=== PATIENT | female | born 1960 | race Caucasian/White ===

== ENCOUNTER 2017-10-07 09:08 | Inpatient (IN) | payer OTHER ==
[2017-10-07] MEDS ORDERED: GLUCAGON 1 MG INJ IM (11:00)
[2017-10-07] MEDS ORDERED: GLUCOSE GEL 15 GRAM TUBE BUCCAL (11:00)
[2017-10-07] MEDS ORDERED: DEXTROSE 50% 50 ML SYRINGE IV ×2 (11:00)
[2017-10-07] MEDS ORDERED: GLUCOSE GEL 15 GRAM TUBE PO ×2 (11:00)
[2017-10-07] MEDS: INSULIN ASPART [NOVOLOG] 3 ML PEN SC ×3 (11:10→20:45)
[2017-10-07 11:31] LABS: ADD MAN DIFF? NO
[2017-10-07 11:36] LABS: BASOPHIL # 0.1 10^3/ul (0.0-0.1); BASOPHILS % 1.4 % (0.0-2.0); EOSINOPHILS % 0.4 % (0.0-7.0); HEMATOCRIT 41.9 % (37.0-47.0); HEMOGLOBIN 14.3 g/dl (12.0-16.0); LYMPHOCYTES # 1.3 10^3/ul (0.8-2.9); LYMPHOCYTES % 22.8 % (15.0-51.0); MEAN CORPUSCULAR HEMOGLOBIN 30.3 pg (29.0-33.0); MEAN CORPUSCULAR HGB CONC 34.1 g/dl (32.0-37.0); MEAN CORPUSCULAR VOLUME 88.8 fl (82.0-101.0); MEAN PLATELET VOLUME 11.7 fl (7.4-10.4); MONOCYTES % 17.8 % (0.0-11.0); NEUTROPHIL # 3.2 10^3/ul (1.6-7.5); NEUTROPHILS % 57.2 % (39.0-77.0); PLATELET COUNT 294 10^3/UL (140-415); RED BLOOD COUNT 4.72 10^6/ul (4.20-5.40); RED CELL DISTRIBUTION WIDTH 13.2 % (11.5-14.5)
[2017-10-07 11:36] LABS: WHITE BLOOD COUNT 5.7 10^3/ul (4.8-10.8)
[2017-10-07 11:38] LABS: ALANINE AMINOTRANSFERASE 29 IU/L (13-69); ALBUMIN/GLOBULIN RATIO 1.17; ALKALINE PHOSPHATASE 117 IU/L (42-121); ANION GAP 15 (8-16); ASPARTATE AMINO TRANSFERASE 30 IU/L (15-46); BILIRUBIN,INDIRECT 0.1 mg/dl (0-1.1); BILIRUBIN,TOTAL 0.1 mg/dl (0.2-1.3); CARBON DIOXIDE 25 mmol/L (21-31); CHLORIDE 104 mmol/L (97-110); GLUCOSE 282 mg/dl (70-220); TOTAL PROTEIN 7.4 g/dl (6.1-8.1)
[2017-10-07 11:41] LABS: BLOOD UREA NITROGEN 11 mg/dl (7-20); CALCIUM 9.1 mg/dl (8.4-10.2); SODIUM 140 mmol/L (135-144)
[2017-10-07 11:55] LABS: INR 0.91; PROTIME 12.3 Sec (11.9-14.9)
[2017-10-07] MEDS ORDERED: INSULIN ASPART [NOVOLOG] 3 ML PEN SC ×2 (12:00→13:00)
[2017-10-07 12:24] LABS: PARTIAL THROMBOPLASTIN TIME 26.2 Sec (25.0-35.0)
[2017-10-07] MEDS ORDERED: FENTAnyl 50 MCG/ML VIAL (13:41)
[2017-10-07] MEDS ORDERED: CEFAZOLIN 1 GM INJ (13:41)
[2017-10-07] MEDS ORDERED: MIDAZOLAM 1 MG/ML 2 ML INJ (13:41)
[2017-10-07] MEDS ORDERED: PROPOFOL 20 ML (13:41)
[2017-10-07] MEDS ORDERED: ROCURONIUM 50 MG INJ (13:41)
[2017-10-07] MEDS ORDERED: OXYCODONE/ACETAMINOPHEN (5/325) TAB PO ×2 (14:00)
[2017-10-07] MEDS ORDERED: FENTAnyl 50 MCG/ML VIAL IV ×3 (14:00)
[2017-10-07] MEDS ORDERED: MEPERIDINE 25 MG INJ IV (14:00)
[2017-10-07] MEDS ORDERED: EPHEDrine SULFATE 50 MG/5 ML SYG IV (14:00)
[2017-10-07] MEDS ORDERED: HYDROmorphONE (0.2 MG/ML) 10ML SYG IV (14:00)
[2017-10-07] MEDS ORDERED: METOCLOPRAMIDE 10 MG INJ IV (14:00)
[2017-10-07] MEDS ORDERED: hydrALAzine 20 MG INJ IV ×2 (14:00→16:30)
[2017-10-07] MEDS ORDERED: LABETALOL HCL 20MG INJ IV (14:00)
[2017-10-07] MEDS ORDERED: ONDANSETRON 4 MG INJ IV ×3 (14:00→21:30)
[2017-10-07] MEDS ORDERED: DIPHENHYDRAMINE 50 MG INJ IV (14:00)
[2017-10-07] MEDS ORDERED: PHENYLephrine (100 MCG/ML) 5ML SYG (14:40)
[2017-10-07] MEDS ORDERED: LABETALOL HCL 20MG INJ (14:57)
[2017-10-07] MEDS ORDERED: KETOROLAC 30 MG INJ (14:57)
[2017-10-07] MEDS ORDERED: SUGAMMADEX SODIUM 200 MG/2 ML VIAL IV (14:57)
[2017-10-07] MEDS ORDERED: METOCLOPRAMIDE 10 MG INJ (14:57)
[2017-10-07] MEDS ORDERED: DEXAMETHASONE 4 MG/ML 1 ML INJ (14:57)
[2017-10-07] MEDS ORDERED: ONDANSETRON 4 MG INJ (14:57)
[2017-10-07] MEDS ORDERED: D5W-0.45 NACL + KCL 20 MEQ 1,000 ML IV (15:35)
[2017-10-07] MEDS: HYDROmorphONE (0.2 MG/ML) 10ML SYG IV ×2 (16:00→16:12)
[2017-10-07] MEDS ORDERED: ACETAMINOPHEN 1000MG/100ML IV 100 ML IVPB (16:00)
[2017-10-07] MEDS: NS + KCL 20 MEQ 1,000 ML IV (18:09)
[2017-10-07] MEDS: ACCU-CHEK XX ×2 (19:55→20:00)
[2017-10-07] MEDS: FAMOTIDINE 20 MG INJ IV (20:36)
[2017-10-07] MEDS: morphine 2 MG INJ IV (20:48)
[2017-10-07] MEDS ORDERED: SOD CHLORIDE 0.9% 1,000 ML IV (21:30)
[2017-10-07] MEDS ORDERED: INSULIN GLARGINE [LANtus] 3 ML PEN SC ×2 (21:30)
[2017-10-07] MEDS: INSULIN GLARGINE [LANtus] 3 ML PEN SC (23:14)
[2017-10-08] MEDS: NS + KCL 20 MEQ 1,000 ML IV ×2 (00:30→02:24)
[2017-10-08] MEDS ORDERED: ACCU-CHEK XX (02:00)
[2017-10-08] MEDS: ACCU-CHEK XX ×3 (02:00→13:40)
[2017-10-08 05:34] LABS: ADD MAN DIFF? NO
[2017-10-08 05:37] LABS: BASOPHILS % 0.2 % (0.0-2.0); HEMATOCRIT 36.8 % (37.0-47.0); HEMOGLOBIN 12.3 g/dl (12.0-16.0); LYMPHOCYTES # 1.2 10^3/ul (0.8-2.9); LYMPHOCYTES % 13.2 % (15.0-51.0); MEAN CORPUSCULAR HEMOGLOBIN 30.3 pg (29.0-33.0); MEAN CORPUSCULAR HGB CONC 33.4 g/dl (32.0-37.0); MEAN CORPUSCULAR VOLUME 90.6 fl (82.0-101.0); MEAN PLATELET VOLUME 11.4 fl (7.4-10.4); MONOCYTE # 0.8 10^3/ul (0.3-0.9); MONOCYTES % 8.8 % (0.0-11.0); NEUTROPHIL # 6.8 10^3/ul (1.6-7.5); NEUTROPHILS % 77.6 % (39.0-77.0); PLATELET COUNT 265 10^3/UL (140-415); RED BLOOD COUNT 4.06 10^6/ul (4.20-5.40); RED CELL DISTRIBUTION WIDTH 13.5 % (11.5-14.5)
[2017-10-08 05:37] LABS: WHITE BLOOD COUNT 8.8 10^3/ul (4.8-10.8)
[2017-10-08 05:54] LABS: MAGNESIUM 1.6 mg/dl (1.7-2.5)
[2017-10-08 06:04] LABS: ANION GAP 15 (8-16); BLOOD UREA NITROGEN 13 mg/dl (7-20); CALCIUM 8.5 mg/dl (8.4-10.2); CARBON DIOXIDE 22 mmol/L (21-31); CHLORIDE 108 mmol/L (97-110); CREATININE 0.41 mg/dl (0.44-1.00); GLUCOSE 264 mg/dl (70-220); POTASSIUM 4.3 mmol/L (3.5-5.1); SODIUM 141 mmol/L (135-144)
[2017-10-08] MEDS: morphine 2 MG INJ IV (07:17)
[2017-10-08] MEDS: SOD CHLORIDE 0.9% 1,000 ML IV (07:21)
[2017-10-08] MEDS: FAMOTIDINE 20 MG INJ IV (09:21)
[2017-10-08] MEDS: INSULIN ASPART [NOVOLOG] 3 ML PEN SC ×3 (09:27→18:27)
[2017-10-08] MEDS ORDERED: BISACODYL 10 MG SUPP PR (10:30)
[2017-10-08] MEDS ORDERED: MAGNESIUM HYDROXIDE 30ML CUP PO (10:30)
[2017-10-08] MEDS ORDERED: OXYCODONE/ACETAMINOPHEN (5/325) TAB PO (10:30)
[2017-10-08] MEDS: OXYCODONE/ACETAMINOPHEN (5/325) TAB PO ×3 (11:02→18:34)
[2017-10-08] MEDS: DOCUSATE SODIUM 100 MG CAP PO (11:02)
[2017-10-08] MEDS ORDERED: metFORMIN 850 MG TAB PO (13:00)
[2017-10-08] MEDS: metFORMIN 500 MG TAB PO (18:23)
[2017-10-08 19:53] LABS: ADD UMIC NO; UR ASCORBIC ACID NEGATIVE (NEGATIVE); UR BILIRUBIN (Dip) NEGATIVE (NEGATIVE); UR BLOOD (Dip) NEGATIVE (NEGATIVE); UR CLARITY CLEAR (CLEAR); UR COLOR YELLOW (YELLOW); UR GLUCOSE (Dip) 3+ mg/dL (NEGATIVE); UR KETONES (Dip) NEGATIVE (NEGATIVE); UR LEUKOCYTE ESTERASE (Dip) NEGATIVE Leu/ul (NEGATIVE); UR NITRITE (Dip) NEGATIVE (NEGATIVE); UR SPECIFIC GRAVITY (Dip) 1.018 (1.003-1.030); UR TOTAL PROTEIN (Dip) NEGATIVE (NEGATIVE); UR UROBILINOGEN (Dip) NEGATIVE (NEGATIVE)
== END 2017-10-08 18:55 | disposition home or self-care (01) | DRG 581 ==
LOC: REC 09:08 → MS1 17:07
PROVIDERS: Surgery Surgical Oncology
PROC: 0HTT0ZZ Resection of Right Breast, Open Approach (ICD-10-PCS; principal; 2017-10-07 14:00)
PROC: 07B50ZZ Excision of Right Axillary Lymphatic, Open Approach (ICD-10-PCS; 2017-10-07 14:00)
DX: D05.11 Intraductal carcinoma in situ of right breast (principal); I10 Essential (primary) hypertension; E11.9 Type 2 diabetes mellitus without complications; Z79.84 Long term (current) use of oral hypoglycemic drugs
CPT/HCPCS: 80048; 80053; 81003; 82962; 83036; 83735; 84100; 85025; 85610; 85730; 88307; 88309

== ENCOUNTER 2018-07-02 22:14 | Emergency (ER) | payer OTHER ==
[2018-07-02 22:42] LABS: URINE BLOOD (Dip) POC 2+ (NEGATIVE); URINE KETONES (Dip) POC 4+ (NEGATIVE); URINE LEUKOCYTE EST (Dip) POC 1+ (NEGATIVE); URINE NITRITE (Dip) POC Negative (NEGATIVE); URINE TOTAL PROTEIN POC 2+ (NEGATIVE)
[2018-07-02 22:42] LABS: URINE PH (Dip) POC 5.5 (5.0-8.5)
[2018-07-02 23:02] LABS: ADD UMIC YES; UR ASCORBIC ACID NEGATIVE (NEGATIVE); UR BACTERIA MODERATE /HPF (NONE SEEN); UR BILIRUBIN (Dip) NEGATIVE (NEGATIVE); UR BLOOD (Dip) 1+ mg/dL (NEGATIVE); UR CLARITY CLOUDY (CLEAR); UR COLOR YELLOW (YELLOW); UR GLUCOSE (Dip) 3+ mg/dL (NEGATIVE); UR KETONES (Dip) 2+ mg/dL (NEGATIVE); UR LEUKOCYTE ESTERASE (Dip) 3+ Leu/ul (NEGATIVE); UR NITRITE (Dip) NEGATIVE (NEGATIVE); UR RBC 7 /HPF (0-5); UR SPECIFIC GRAVITY (Dip) 1.027 (1.003-1.030); UR SQUAMOUS EPITHELIAL CELL FEW /HPF (FEW); UR TOTAL PROTEIN (Dip) 2+ mg/dl (NEGATIVE); UR UROBILINOGEN (Dip) NEGATIVE (NEGATIVE); UR WBC > 182 /HPF (0-5)
[2018-07-02 23:06] LABS: ADD MAN DIFF? NO
[2018-07-02] MEDS: SOD CHLORIDE 0.9% 1,000 ML IV (23:07)
[2018-07-02 23:08] LABS: WHITE BLOOD COUNT 12.2 10^3/ul (4.8-10.8)
[2018-07-02 23:08] LABS: BASOPHIL # 0.1 10^3/ul (0.0-0.1); BASOPHILS % 0.5 % (0.0-2.0); HEMATOCRIT 39.5 % (37.0-47.0); HEMOGLOBIN 12.9 g/dl (12.0-16.0); LYMPHOCYTES # 1.2 10^3/ul (0.8-2.9); LYMPHOCYTES % 9.7 % (15.0-51.0); MEAN CORPUSCULAR HEMOGLOBIN 29.6 pg (29.0-33.0); MEAN CORPUSCULAR HGB CONC 32.7 g/dl (32.0-37.0); MEAN CORPUSCULAR VOLUME 90.6 fl (82.0-101.0); MEAN PLATELET VOLUME 10.7 fl (7.4-10.4); MONOCYTE # 0.9 10^3/ul (0.3-0.9); MONOCYTES % 7.2 % (0.0-11.0); NEUTROPHILS % 81.9 % (39.0-77.0); PLATELET COUNT 355 10^3/UL (140-415); RED BLOOD COUNT 4.36 10^6/ul (4.20-5.40); RED CELL DISTRIBUTION WIDTH 13.1 % (11.5-14.5)
[2018-07-02 23:30] LABS: AMYLASE 33 U/L (11-123)
[2018-07-02 23:30] LABS: LIPASE 69 U/L (23-300)
[2018-07-02 23:31] LABS: ALANINE AMINOTRANSFERASE 7 IU/L (13-69); ALBUMIN 3.8 g/dl (3.3-4.9); ALBUMIN/GLOBULIN RATIO 1.02; ALKALINE PHOSPHATASE 124 IU/L (42-121); ANION GAP 17 (5-13); ASPARTATE AMINO TRANSFERASE 16 IU/L (15-46); BILIRUBIN,INDIRECT 0.3 mg/dl (0-1.1); BILIRUBIN,TOTAL 0.3 mg/dl (0.2-1.3); BLOOD UREA NITROGEN 14 mg/dl (7-20); CARBON DIOXIDE 26 mmol/L (21-31); CHLORIDE 89 mmol/L (97-110); CREATININE 0.54 mg/dl (0.44-1.00); Estimated GFR > 60 mL/min (>60); POTASSIUM 4.9 mmol/L (3.5-5.1); SODIUM 132 mmol/L (135-144); TOTAL PROTEIN 7.5 g/dl (6.1-8.1)
[2018-07-02 23:40] LABS: GLUCOSE 623 mg/dl (70-220)
[2018-07-02] MEDS ORDERED: INSULIN REGULAR, HUMAN 100 UNIT/1 ML 3ML VIAL IVP (23:44)
[2018-07-03] MEDS: SOD CHLORIDE 0.9% 500 ML IV ×2 (00:01→03:19)
[2018-07-03] MEDS: INSULIN REGULAR, HUMAN 100 UNIT/1 ML 3ML VIAL IVP ×2 (00:22→02:20)
[2018-07-03 00:29] LABS: LACTIC ACID 1.2 mmol/L (0.5-2.0)
[2018-07-03] MEDS ORDERED: DEXTROSE 50% 50 ML SYRINGE IV ×2 (00:30→02:00)
[2018-07-03] MEDS: metFORMIN 500 MG TAB PO (03:20)
[2018-07-03] MEDS: CEFTRIAXONE 1 GM/50 ML (PMX) 50 ML IVPB (03:52)
[2018-07-03] MEDS: CIPROFLOXACIN 250 MG TAB PO (03:57)
[2018-07-03] MEDS: METOCLOPRAMIDE 10 MG INJ IV (04:02)
== END 2018-07-03 05:19 | disposition home or self-care (01) ==
LOC: FTE 07-03 05:19
DX: R73.9 Hyperglycemia, unspecified (principal); N39.0 Urinary tract infection, site not specified; N12 Tubulo-interstitial nephritis, not specified as acute or chronic
CPT/HCPCS: 80053; 81001; 81003; 82150; 82962; 83605; 83690; 85025; 87040; 87086; 96374; 96375; 99284-25

== ENCOUNTER 2018-07-03 15:16 | Emergency (ER) | payer OTHER ==
[2018-07-03 16:25] LABS: ADD MAN DIFF? NO
[2018-07-03 16:30] LABS: WHITE BLOOD COUNT 13.3 10^3/ul (4.8-10.8)
[2018-07-03 16:30] LABS: BASOPHIL # 0.1 10^3/ul (0.0-0.1); BASOPHILS % 0.5 % (0.0-2.0); EOSINOPHILS % 0.2 % (0.0-7.0); HEMATOCRIT 38.7 % (37.0-47.0); HEMOGLOBIN 12.6 g/dl (12.0-16.0); LYMPHOCYTES # 1.2 10^3/ul (0.8-2.9); LYMPHOCYTES % 8.7 % (15.0-51.0); MEAN CORPUSCULAR HEMOGLOBIN 29.6 pg (29.0-33.0); MEAN CORPUSCULAR HGB CONC 32.6 g/dl (32.0-37.0); MEAN CORPUSCULAR VOLUME 91.1 fl (82.0-101.0); MEAN PLATELET VOLUME 10.3 fl (7.4-10.4); MONOCYTE # 1.1 10^3/ul (0.3-0.9); NEUTROPHILS % 82.2 % (39.0-77.0); PLATELET COUNT 346 10^3/UL (140-415); RED BLOOD COUNT 4.25 10^6/ul (4.20-5.40); RED CELL DISTRIBUTION WIDTH 13.2 % (11.5-14.5)
[2018-07-03] MEDS: CEFTRIAXONE 1 GM/50 ML (PMX) 50 ML IVPB (16:34)
[2018-07-03] MEDS: SODIUM CHLORIDE 0.9% 1L BAG IV* (16:34)
[2018-07-03 16:50] LABS: INR 0.93; PROTIME 12.6 Sec (11.9-14.9)
[2018-07-03 16:51] LABS: PARTIAL THROMBOPLASTIN TIME 28.1 Sec (23.0-35.0)
[2018-07-03 16:55] LABS: ALANINE AMINOTRANSFERASE 17 IU/L (13-69); ALBUMIN 3.5 g/dl (3.3-4.9); ALBUMIN/GLOBULIN RATIO 1.06; ALKALINE PHOSPHATASE 110 IU/L (42-121); ANION GAP 10 (5-13); ASPARTATE AMINO TRANSFERASE 16 IU/L (15-46); BILIRUBIN,INDIRECT 0.1 mg/dl (0-1.1); BILIRUBIN,TOTAL 0.1 mg/dl (0.2-1.3); BLOOD UREA NITROGEN 14 mg/dl (7-20); CALCIUM 8.8 mg/dl (8.4-10.2); CARBON DIOXIDE 27 mmol/L (21-31); CHLORIDE 97 mmol/L (97-110); CREATININE 0.47 mg/dl (0.44-1.00); Estimated GFR > 60 mL/min (>60); GLUCOSE 329 mg/dl (70-220); POTASSIUM 4.1 mmol/L (3.5-5.1); SODIUM 134 mmol/L (135-144); TOTAL PROTEIN 6.8 g/dl (6.1-8.1)
[2018-07-03 17:06] LABS: TROPONIN-I < 0.012 ng/ml (0.000-0.120)
[2018-07-03 17:11] LABS: ADD UMIC YES; UR ASCORBIC ACID NEGATIVE (NEGATIVE); UR BILIRUBIN (Dip) NEGATIVE (NEGATIVE); UR BLOOD (Dip) 1+ mg/dL (NEGATIVE); UR CLARITY SLIGHTLY CLOUDY (CLEAR); UR COLOR YELLOW (YELLOW); UR GLUCOSE (Dip) 3+ mg/dL (NEGATIVE); UR KETONES (Dip) 2+ mg/dL (NEGATIVE); UR LEUKOCYTE ESTERASE (Dip) 1+ Leu/ul (NEGATIVE); UR NITRITE (Dip) NEGATIVE (NEGATIVE); UR RBC 4 /HPF (0-5); UR SPECIFIC GRAVITY (Dip) 1.023 (1.003-1.030); UR TOTAL PROTEIN (Dip) 1+ mg/dl (NEGATIVE); UR UROBILINOGEN (Dip) NEGATIVE (NEGATIVE); UR WBC 108 /HPF (0-5)
[2018-07-03] MEDS: ACETAMINOPHEN 500 MG TAB PO (20:50)
== END 2018-07-03 21:12 | disposition short-term general hospital (02) ==
LOC: E/R 15:16
DX: A41.51 Sepsis due to Escherichia coli [E. coli] (principal); N39.0 Urinary tract infection, site not specified; E11.9 Type 2 diabetes mellitus without complications; R06.02 Shortness of breath; Z85.3 Personal history of malignant neoplasm of breast; Z79.84 Long term (current) use of oral hypoglycemic drugs
CPT/HCPCS: 36415; 71045; 80053; 81001; 83605; 84484; 85025; 85610; 85730; 87040; 87086; 96374; 99285-25

== ENCOUNTER 2018-11-20 12:34 | Emergency (ER) | payer OTHER | END 2018-11-20 15:33 | disposition home or self-care (01) | LOC: FTE 12:34 | DX: R05 Cough (principal); E11.9 Type 2 diabetes mellitus without complications; R06.02 Shortness of breath; Z79.84 Long term (current) use of oral hypoglycemic drugs; Z85.3 Personal history of malignant neoplasm of breast | CPT/HCPCS: 71046; 93005; 99284-25 ==

== ENCOUNTER 2019-05-02 13:50 | Emergency (ER) | payer OTHER ==
[2019-05-02] MEDS: LIDOCAINE/MYLANTA 40 ML BTL PO (16:35)
[2019-05-02] MEDS: BELLADONNA/PHENOBARBITAL TAB PO (16:35)
[2019-05-02] MEDS: FAMOTIDINE 20 MG TAB PO (16:35)
== END 2019-05-02 17:11 | disposition home or self-care (01) ==
LOC: E/R 13:50
DX: R10.13 Epigastric pain (principal); E11.9 Type 2 diabetes mellitus without complications; Z79.84 Long term (current) use of oral hypoglycemic drugs; Z85.3 Personal history of malignant neoplasm of breast
CPT/HCPCS: 80053; 83690; 84484; 85025; 93005; 99284-25